=== PATIENT | male | born 1960 | race Caucasian/White ===

== ENCOUNTER → 2021-05-15 06:52 | Outpatient (CLI) | payer BC, SELFPAY ==
[2021-05-15 08:56] LABS: Hematocrit 45.6 % (41-53); Hemoglobin 15.2 g/dL (13.5-17.5); Mean Corpuscular HGB Conc 33.4 % (30-36); Mean Corpuscular Hemoglobin 32.7 PG (26-34); Mean Corpuscular Volume 97.9 fL (80-100); Platelet Count 179 X10^3/uL (150-400); Red Blood Cell Count 4.66 X10^6/uL (4.5-5.9); Red Cell Distribution Width 12.5 % (11.6-14.8)
[2021-05-15 09:19] LABS: Alanine Aminotransferase 20 IU/L (<50); Albumin 4.5 g/dL (3.5-5.0); Albumin Globulin Ratio 1.9 (1.0-2.8); Alkaline Phosphatase 43 U/L (38-126); Aspartate Aminotransferase 42 IU/L (17-59); BUN Creatinine Ratio 12.3 (6-22); Bilirubin Total 1.1 mg/dL (0.2-1.3); Blood Urea Nitrogen 13 mg/dL (9-20); Calcium 9.3 mg/dL (8.4-10.2); Carbon Dioxide 34 mmol/L (22-32); Chloride 99 mmol/L (98-107); Cholesterol 169 mg/dL (140-199); Estimated Glomerular Filt Rate > 60.0 mL/min (>60); Globulin 2.4 g/dL (1.7-4.1); Glucose 89 mg/dL (80-110); HDL Cholesterol 77 mg/dL (40-60); HEMOLYSIS < 15 (0-50); LDL Cholesterol Calculated 86 mg/dL (<100); Potassium 3.9 mmol/L (3.4-5.1); Sodium 136 mmol/L (137-145); Total Protein 6.9 g/dL (6.3-8.2); Triglycerides 32 mg/dL (35-150)
[2021-05-15 09:46] LABS: TSH w/ Reflex to FT4 4.16 uIU/mL (0.47-4.68)
== END ==
PROVIDERS: PCP Registered Nurse Diabetes Educator; Referring Provider Registered Nurse Diabetes Educator; Visit Provider Registered Nurse Diabetes Educator
DX: E03.9 Hypothyroidism, unspecified (principal); E78.5 Hyperlipidemia, unspecified
CPT/HCPCS: 36415; 80053; 80061; 84443; 85027

== ENCOUNTER → 2021-06-01 08:58 | Outpatient (CLI) | payer BC, SELFPAY ==
--- NOTE | 2021-06-01 08:59 | DI.RAD.S_ITS ---
PROCEDURE: XR HUMERUS LT 2V INDICATIONS: eval L shoulder and upper arm pain TECHNIQUE: 2 views of the humerus were acquired. COMPARISON: [facility], CR, XR SHOULDER LT MIN 2V, 06/01/2021, 8:51. FINDINGS: Bones: No fractures or dislocations. No suspicious bony lesions. Soft tissues: No suspicious soft tissue calcifications. IMPRESSION: No acute osseous abnormalities. Dictated by: Hudson Santoyo M.D. on 06/01/2021 at 10:10 Approved by: Hudson Santoyo M.D. on 06/01/2021 at 10:10
--- NOTE | 2021-06-01 08:59 | DI.RAD.S_ITS ---
PROCEDURE: XR SHOULDER LT MIN 2V INDICATIONS: eval L shoulder and upper arm pain TECHNIQUE: 3 views of the shoulder were acquired. COMPARISON: [facility], CR, XR HUMERUS LT 2V, 06/01/2021, 8:51. FINDINGS: Bones: No fractures or dislocations. There is a 0.8 cm sclerotic focus in humeral head. Mild acromioclavicular joint degeneration. Visualized ribs appear intact. Soft tissues: No suspicious soft tissue calcifications. IMPRESSION: 1. Mild degenerative joint disease. 2. A sclerotic lesion in humeral head, most likely a bone island. If there is personal history of cancer, a whole body bone scan would be helpful. Dictated by: Hudson Santoyo M.D. on 06/01/2021 at 10:11 Approved by: Hudson Santoyo M.D. on 06/01/2021 at 10:14
== END ==
PROVIDERS: PCP Registered Nurse Diabetes Educator; Referring Provider Registered Nurse Diabetes Educator; Visit Provider Registered Nurse Diabetes Educator
DX: M19.012 Primary osteoarthritis, left shoulder (principal); M25.512 Pain in left shoulder; M79.602 Pain in left arm; M89.9 Disorder of bone, unspecified
CPT/HCPCS: 73030; 73060

== ENCOUNTER → 2021-07-08 11:36 | Outpatient (CLI) | payer BC, SELFPAY ==
--- NOTE | 2021-07-08 11:37 | DI.MRI.S_ITS ---
PROCEDURE: MR SHOULDER LT WO/W CON INDICATIONS: further eval sclerotic lesion L humeral head, shoulder pain TECHNIQUE: Noncontrast oblique coronal T1 spin echo and T2 fast spin echo with fat saturation, oblique sagittal T1 spin echo and T2 fast spin echo with fat saturation, axial T1 spin echo and T2 fast spin echo with fat saturation through the shoulder. Post-contrast oblique coronal, oblique sagittal, and axial T1 spin echo with fat saturation through the shoulder. COMPARISON: [facility], CR, XR HUMERUS LT 2V, 06/01/2021, 8:51. [facility], CR, XR SHOULDER LT MIN 2V, 06/01/2021, 8:51. FINDINGS: Image quality: Excellent. Rotator cuff: There is high-grade partial-thickness tear of the supraspinatus tendon and associated tendinitis. Mild tendinosis of the infraspinatus and subscapularis tendons without tendon tear. Sagittal images demonstrate no rotator cuff muscle atrophy. Bones and bursae: The sclerotic lesion in the humeral head demonstrates no abnormal enhancement, most likely benign such as a bone island. No suspicious bone marrow enhancement. No bone contusions or fractures. Mild acromioclavicular joint degeneration. The acromion demonstrates conventional anatomy, without an os acromiale. There is a small amount of subacromial-subdeltoid bursal fluid consistent with mild bursitis. Small glenohumeral joint effusion is present. Capsule and soft tissues: No suspicious soft tissue enhancement. Mild degenerative labral fraying. The long head of the biceps tendon demonstrates normal location and morphology. The rotator interval appears irregular with mild fibrosis. The coracohumeral ligament is mildly thickened. IMPRESSION: 1. The sclerotic bone lesion in the humeral head demonstrates no abnormal enhancement, most likely a bone island. 2. High-grade partial-thickness tear of the supraspinatus tendon. 3. Mild infraspinatus and subscapularis tendinosis without discrete tendon tear 4. Mild subacromial-subdeltoid bursitis. 5. Mild acromioclavicular joint degeneration. 6. Irregular rotator interval with mild fibrosis and mild thickening of coracohumeral ligament. The constellation of findings suggests adhesive capsulitis. Recommend clinical correlation. Dictated by: Hudson Santoyo M.D. on 07/10/2021 at 13:06 Approved by: Hudson Santoyo M.D. on 07/10/2021 at 13:23
== END ==
PROVIDERS: PCP Registered Nurse Diabetes Educator; Referring Provider Registered Nurse Diabetes Educator; Visit Provider Registered Nurse Diabetes Educator
DX: M75.112 Incomplete rotator cuff tear or rupture of left shoulder, not specified as traumatic (principal); M19.012 Primary osteoarthritis, left shoulder; M89.9 Disorder of bone, unspecified; M75.52 Bursitis of left shoulder; M25.512 Pain in left shoulder
CPT/HCPCS: 73223; A9579

== ENCOUNTER → 2021-07-28 10:09 | Outpatient (CLI) | payer BC, SELFPAY ==
[2021-07-28 11:23] LABS: Add Manual Diff / Slide Review NO; Basophils Absolute Auto 100 /uL (0-100); Basophils Percent Auto 1.9 % (0-2); Eosinophils Absolute Auto 100 /uL (0-450); Eosinophils Percent Auto 2.7 % (2-4); Hematocrit 42.7 % (41-53); Hemoglobin 14.7 g/dL (13.5-17.5); Lymphocytes Absolute Auto 1300 /uL (1100-4500); Lymphocytes Percent Auto 40.2 % (25-40); Mean Corpuscular HGB Conc 34.5 % (30-36); Mean Corpuscular Hemoglobin 33.1 PG (26-34); Mean Corpuscular Volume 96.2 fL (80-100); Monocytes Absolute Auto 400 /uL (0-900); Monocytes Percent Auto 12.8 % (3-14); Neutrophils Absolute Auto 1400 /uL (1500-7000); Neutrophils Percent Auto 42.4 % (50-75); Platelet Count 191 X10^3/uL (150-400); Red Blood Cell Count 4.44 X10^6/uL (4.5-5.9); Red Cell Distribution Width 12.8 % (11.6-14.8); White Blood Cell Count 3.3 X10^3/uL (4.5-11.0)
== END ==
PROVIDERS: PCP Registered Nurse Diabetes Educator; Referring Provider Registered Nurse Diabetes Educator; Visit Provider Registered Nurse Diabetes Educator
DX: D72.819 Decreased white blood cell count, unspecified (principal)
CPT/HCPCS: 36415; 85025

== ENCOUNTER → 2022-05-29 06:57 | Outpatient (CLI) | payer BC, SELFPAY ==
[2022-05-29 08:30] LABS: Hematocrit 44.4 % (41-53); Hemoglobin 15.3 g/dL (13.5-17.5); Mean Corpuscular HGB Conc 34.6 % (30-36); Mean Corpuscular Hemoglobin 33.6 PG (26-34); Mean Corpuscular Volume 97.2 fL (80-100); Platelet Count 181 X10^3/uL (150-400); Red Blood Cell Count 4.57 X10^6/uL (4.5-5.9); Red Cell Distribution Width 12.8 % (11.6-14.8); White Blood Cell Count 3.7 X10^3/uL (4.5-11.0)
[2022-05-29 08:55] LABS: Alanine Aminotransferase 24 IU/L (<50); Albumin 4.4 g/dL (3.5-5.0); Albumin Globulin Ratio 1.9 (1.0-2.8); Alkaline Phosphatase 66 U/L (38-126); Aspartate Aminotransferase 33 IU/L (17-59); BUN Creatinine Ratio 12.6 (6-22); Bilirubin Total 0.9 mg/dL (0.2-1.3); Blood Urea Nitrogen 13 mg/dL (9-20); Calcium 9.1 mg/dL (8.4-10.2); Carbon Dioxide 32 mmol/L (22-32); Chloride 97 mmol/L (98-107); Cholesterol 193 mg/dL (140-199); Estimated Glomerular Filt Rate > 60 mL/min (>60); Globulin 2.3 g/dL (1.7-4.1); Glucose 88 mg/dL (80-110); HDL Cholesterol 85 mg/dL (40-60); HEMOLYSIS < 15 (0-50); LDL Cholesterol Calculated 98 mg/dL (<100); Potassium 4.4 mmol/L (3.4-5.1); Sodium 134 mmol/L (137-145); Total Protein 6.7 g/dL (6.3-8.2); Triglycerides 48 mg/dL (35-150)
[2022-05-29 10:10] LABS: Free T4, Direct Thyroxine 1.06 ng/dL (0.78-2.19)
== END ==
PROVIDERS: PCP Registered Nurse Diabetes Educator; Referring Provider Registered Nurse Diabetes Educator; Visit Provider Registered Nurse Diabetes Educator
DX: E03.9 Hypothyroidism, unspecified (principal); E78.5 Hyperlipidemia, unspecified; Z00.00 Encounter for general adult medical examination without abnormal findings; Z51.81 Encounter for therapeutic drug level monitoring
CPT/HCPCS: 36415; 80053; 80061; 84439; 84443; 85027

== ENCOUNTER → 2022-06-05 08:59 | Outpatient (CLI) | payer BC, SELFPAY ==
--- NOTE | 2022-06-05 09:00 | DI.RAD.S_ITS ---
PROCEDURE: XR KNEE LT 3V INDICATIONS: eval L knee pain TECHNIQUE: 3 views of the knee were acquired. COMPARISON: None. FINDINGS: Bones: No fractures or dislocations. Medial femoral tibial compartment osteoarthritic changes are seen with joint space narrowing and subchondral sclerosis. No patellar subluxation. No suspicious bony lesions. Soft tissues: Moderate suprapatellar joint effusion is seen. No suspicious soft tissue calcifications. IMPRESSION: [id number] medial femoral tibial compartment osteoarthritis. No left knee fracture or dislocation. Moderate suprapatellar joint effusion. Dictated by: Rome May M.D. on 06/05/2022 at 10:30 Approved by: Rome May M.D. on 06/05/2022 at 10:44
== END ==
PROVIDERS: PCP Registered Nurse Diabetes Educator; Referring Provider Registered Nurse Diabetes Educator; Visit Provider Registered Nurse Diabetes Educator
DX: M17.12 Unilateral primary osteoarthritis, left knee (principal); M25.562 Pain in left knee; M25.462 Effusion, left knee
CPT/HCPCS: 73562

== ENCOUNTER → 2022-06-05 09:54 | Outpatient (CLI) | payer BC, SELFPAY ==
--- NOTE | 2022-06-05 09:55 | DI.US.S_ITS ---
PROCEDURE: US THYROID INDICATIONS: HISTORY OF HYPOTHRYOIDISM TECHNIQUE: Real-time scanning was performed of the thyroid gland, with image documentation. COMPARISON: None. FINDINGS: Right: Thyroid lobe measures 3.8 X 1.1 X 1.3 cm, and is homogeneous in echotexture. Left: Thyroid lobe measures 3.4 X 1.4 X 1.2 cm, and is homogenous in echotexture. Isthmus: 2 mm thick. Nodule number: 1 Location: RIGHT INFERIOR POLE Size: 0.5 cm. Composition: SOLID Echogenicity: HYPOECHOIC Shape: wider than tall. Margins: Smooth Echogenic foci: No Total points: 4 ACR TI-RADS category: Moderate suspicion IMPRESSION: Moderate suspicion thyroid nodule in the right inferior pole. This does not meet size criteria for biopsy. Follow-up guidelines below. ACR TI-RADS definitions and recommendations: TI-RADS 1 (benign): 0 points. FNA not needed. TI-RADS 2 (not suspicious): 2 points. FNA not needed. TI-RADS 3 (mildly suspicious): 3 points. * FNA if 2.5 cm or larger, follow up if 1.5 cm or larger (at 1, 3, and 5 years). TI-RADS 4 (moderately suspicious): 4-6 points. * FNA if 1.5 cm or larger, follow up if 1 cm or larger (at 1, 2, 3, and 5 years). TI-RADS 5 (highly suspicious): 7 points or more. * FNA if 1 cm or larger, follow up if 0.5 cm or larger (every year for 5 years). Dictated by: Juan R Sanchez M.D. on 06/05/2022 at 11:08 Approved by: Juan R Sanchez M.D. on 06/05/2022 at 11:11
== END ==
PROVIDERS: PCP Registered Nurse Diabetes Educator; Referring Provider Registered Nurse Diabetes Educator; Visit Provider Registered Nurse Diabetes Educator
DX: E04.1 Nontoxic single thyroid nodule (principal); E03.9 Hypothyroidism, unspecified; M25.562 Pain in left knee; M17.12 Unilateral primary osteoarthritis, left knee; M25.462 Effusion, left knee
CPT/HCPCS: 73562; 76536

== ENCOUNTER → 2022-07-23 07:13 | Outpatient (CLI) | payer BC, SELFPAY ==
[2022-07-23 09:50] LABS: TSH w/ Reflex to FT4 3.35 uIU/mL (0.47-4.68)
== END ==
PROVIDERS: PCP Registered Nurse Diabetes Educator; Referring Provider Registered Nurse Diabetes Educator; Visit Provider Registered Nurse Diabetes Educator
DX: E03.9 Hypothyroidism, unspecified (principal)
CPT/HCPCS: 36415; 84443

== ENCOUNTER → 2023-07-03 06:42 | Outpatient (CLI) | payer BC, SELFPAY ==
[2023-07-03 08:00] LABS: Hematocrit 45.1 % (41-53); Hemoglobin 15.3 g/dL (13.5-17.5); Mean Corpuscular Hemoglobin 33.4 PG (26-34); Mean Corpuscular Volume 98.3 fL (80-100); Platelet Count 178 X10^3/uL (150-400); Red Blood Cell Count 4.58 X10^6/uL (4.5-5.9); Red Cell Distribution Width 13.5 % (11.6-14.8); White Blood Cell Count 3.1 X10^3/uL (4.5-11.0)
[2023-07-03 08:42] LABS: Alanine Aminotransferase 29 IU/L (<50); Albumin 4.6 g/dL (3.5-5.0); Albumin Globulin Ratio 2.3 (1.0-2.8); Alkaline Phosphatase 59 U/L (38-126); Aspartate Aminotransferase 44 IU/L (17-59); Blood Urea Nitrogen 11 mg/dL (9-20); Calcium 9.6 mg/dL (8.4-10.2); Carbon Dioxide 31 mmol/L (22-32); Chloride 102 mmol/L (98-107); Cholesterol 180 mg/dL (140-199); Estimated Glomerular Filt Rate > 60 mL/min (>60); Glucose 90 mg/dL (80-110); HDL Cholesterol 97 mg/dL (40-60); HEMOLYSIS < 15 (0-50); LDL Cholesterol Calculated 76 mg/dL (<100); Potassium 4.3 mmol/L (3.4-5.1); Sodium 135 mmol/L (137-145); Total Protein 6.6 g/dL (6.3-8.2); Triglycerides 37 mg/dL (35-150)
[2023-07-03 09:03] LABS: Prostate Specific Antigen 1.16 ng/mL (0.10-4.00)
== END ==
LOC: LAB 06:43
PROVIDERS: PCP Registered Nurse Diabetes Educator; Referring Provider Registered Nurse Diabetes Educator; Visit Provider Registered Nurse Diabetes Educator
DX: Z00.00 Encounter for general adult medical examination without abnormal findings (principal)
CPT/HCPCS: 36415; 80053; 80061; 84153; 84443; 85027

== ENCOUNTER 2023-10-26 07:31 | Emergency (ER) | payer BC, SELFPAY ==
[2023-10-26 07:43] VITALS: BP 158/89; PULSE 63; RESP 18; TEMP 36.6; O2SAT 99; BMI 23.1
--- NOTE | 2023-10-26 07:47 | DI.RAD.S_ITS ---
PROCEDURE: XR FOREARM LT 2V INDICATIONS: r/o fx TECHNIQUE: 2 views of the forearm were acquired. COMPARISON: [facility], CR, XR WRIST LT MIN 3V, 10/26/2023, 7:56. FINDINGS: Bones: No fractures or dislocations. No suspicious bony lesions. Soft tissues: No suspicious soft tissue calcifications or masses. IMPRESSION: No acute bony abnormality. Dictated by: Jerel Helton M.D. on 10/26/2023 at 9:16 Approved by: Jerel Helton M.D. on 10/26/2023 at 9:17
--- NOTE | 2023-10-26 07:48 | DI.RAD.S_ITS ---
PROCEDURE: XR WRIST LT MIN 3V INDICATIONS: r/o fx TECHNIQUE: 4 views of the wrist were acquired. COMPARISON: None. FINDINGS: Bones: No fractures or dislocations. No suspicious bony lesions. Soft tissues: No suspicious soft tissue calcifications. IMPRESSION: No acute bony abnormality. Dictated by: Jerel Helton M.D. on 10/26/2023 at 8:33 Approved by: Jerel Helton M.D. on 10/26/2023 at 8:34
--- NOTE | 2023-10-26 07:53 | ED_ITS ---
HPI - Extremity Injury (Upper) General Chief Complaint: Extremity Injury, Upper Stated Complaint: fell and hurt left arm Time Seen by Provider: 10/26/23 07:48 Source: patient Mode of arrival: Ambulatory History of Present Illness HPI narrative: 63-year-old right-handed male slipped last night at home in the tub, tried to brace himself with his left hand, holding onto the tub edge, felt pain in his left wrist that has been persisting, also some proximal forearm pain. No pain to his left elbow, upper arm, shoulder. He did not strike his head. No headache, no neck pain. Denies pain to upper mid and low back. No lower extremity injuries. No right upper extremity injuries. No facial injuries. He has tried local ice application, had some swelling initially that seems to be improved, but persisting pain predominantly at the left wrist, also some dorsal forearm left. Related Data Home Medications Medication Instructions Recorded Confirmed metronidazole 0.75 % topical cream 1 applic topical BID 07/09/23 07/09/23 Previous Rx's Medication Instructions Recorded varicella-zoster glycoE [id number] 0.5 ml IM ONCE #1 ea 06/01/21 adj(PF) 50 mcg/0.5 mL IM susp, kit (Shingrix (PF)) levothyroxine 100 mcg tablet 100 mcg PO DAILY #90 tabs 07/09/23 simvastatin 40 mg tablet 40 mg PO DAILY #90 tabs 07/09/23 Allergies Allergy/AdvReac Type Severity Reaction Status Date / Time No Known Drug Allergies Allergy Verified 07/09/23 08:07 Review of Systems Review of Systems Narrative: see HPI Patient History Medical History (Updated 10/26/23 @ 07:59 by Patrice Felder MD) Thyroid Nodule History of colon polyps Osteoarthritis of left knee Hypothyroidism Dyslipidemia Social History Smoking Status: Never smoker Smoking Status: Never smoker alcohol intake frequency: 3 or more drinks per day Alcohol type: beer Substance Use Type: does not use Exam Narrative Exam Narrative: GENERAL: Well-developed patient, in mild distress. HEAD: Atraumatic. Normocephalic. EYES: Pupils equal round and reactive. Extraocular motions intact. No scleral icterus. No injection or drainage. ENT: Nose without bleeding, purulent drainage. Throat without erythema, tonsillar hypertrophy or exudate. Airway patent. NECK: Trachea midline. Non tender CARDIOVASCULAR: Regular rate and rhythm without murmurs, gallops, or rubs. RESPIRATORY: Clear to auscultation. Breath sounds equal bilaterally. No wheezes, rales, or rhonchi. GASTROINTESTINAL: Abdomen soft, non-tender, nondistended. EXTREMITIES: Tenderness to left distal rest without gross deformity, also some tenderness to the muscle bellies proximal left forearm. No tenderness at left elbow, upper arm, shoulder, trapezius. No tenderness left hand snuffbox area. No tenderness or deformity to dorsal or volar hand, nor to left fingers. No skin abrasions or lacerations. BACK: Nontender without deformity or crepitance. No flank tenderness. NEURO: AOx3. SKIN: No rash or erythema of visible areas Initial Vital Signs Initial Vital Signs: Vital Signs Temperature 97.9 F 10/26/23 07:43 Pulse Rate 63 10/26/23 07:43 Respiratory Rate 18 10/26/23 07:43 Blood Pressure 158/89 H 10/26/23 07:43 Pulse Oximetry 99 10/26/23 07:43 Oxygen Delivery Method Room Air 10/26/23 07:43 Course Orders Ordered: ED Orders 10/26/23 07:47 XR forearm LT 2V Stat 10/26/23 07:48 XR wrist LT min 3V Stat Vital Signs Vital signs: Vital Signs - 8 hr 10/26/23 07:43 Temperature 97.9 F Pulse Rate 63 Respiratory Rate 18 Blood Pressure 158/89 H Pulse Oximetry 99 Oxygen Delivery Method Room Air MDM - Extremity Injury (Upper) Imaging Data Extremity x-ray #2: Radiologist's Impression: Close Wrist X-Ray (Signed) Jerel Helton - 10/26/23 Forearm X-Ray (Signed) Jerel Helton - 10/26/23 Thyroid Ultrasound (Signed) Juan R Sanchez - 06/05/22 Knee X-Ray (Signed) Rome May - 06/05/22 Shoulder MRI (Signed) Sloan Santoyo - 07/08/21 Shoulder X-Ray (Signed) Sloan Santoyo - 06/01/21 Humerus X-Ray (Signed) Sloan Santoyo - 06/01/[address] [address] XRay Report Signed Patient: Antonio Queen MR#: [id number] : 1960 Acct:[id number] Age/Sex: 63 / M Date of Service: 10/26/23 Loc: ED Accession Number: [id number] Procedure: XR forearm LT 2V Ordering Provider: Patrice Felder MD PROCEDURE: XR FOREARM LT 2V INDICATIONS: r/o fx TECHNIQUE: 2 views of the forearm were acquired. COMPARISON: [facility], CR, XR WRIST LT MIN 3V, 10/26/2023, 7:56. FINDINGS: Bones: No fractures or dislocations. No suspicious bony lesions. Soft tissues: No suspicious soft tissue calcifications or masses. IMPRESSION: No acute bony abnormality. Dictated by: Jerel Helton M.D. on 10/26/2023 at 9:16 Approved by: Jerel Helton M.D. on 10/26/2023 at 9:17 MDM Narrative Medical decision making narrative: 63-year-old male with slip and fall bathtub, broke his fall with grabbing onto bathtub edge with left hand, left wrist pain and swelling since last night, ice packs helping. Also left forearm discomfort. X-rays left wrist and forearm ordered from triage. X-ray reports negative for fracture, see radiology reports. Placed left Velcro wrist splint. Recheck PCP advised early next week, also gave contact information for local orthopedic surgery if needed. We discussed possible injury occult fracture that may not be evident on 1st x-ray, also ligamentous/tendon soft tissue injuries did not show up on x-rays. We discussed rest, ice, splinting, use of anti-inflammatories if tolerated. Recheck advise early next week. Return precautions discussed, home with family. Discharge Plan Departure Patient Disposition: Home Clinical Impression: Strain of left wrist Activity Restrictions/Additional Instructions: Slip and fall in a tub last night, using left hand to brace herself, with pain to the left distal wrist, also some slight pain to the dorsal aspect of the muscle belly area on the left forearm. X-ray left forearm without obvious fracture pattern. Wrist splint, ice, elevation, anti-inflammatory medications advised. Follow up with your regular doctor in the next couple of days to reassess symptoms. Consider orthopedic surgery follow up if symptoms are persisting. Local contact Orthopedic surgery provided if needed. Return earlier to this/nearest emergency department for any change worsening symptoms or any concerns prior Prescriptions: No Action Shingrix (PF) 50 mcg/0.5 mL suspension for reconstitution 0.5 ml IM ONCE Qty: 1 1RF Rx Instructions: 0.5 mL administered as a 2-dose series at 0 and 2 to 6 months. metronidazole 0.75 % cream 1 applic topical BID levothyroxine 100 mcg tablet 100 mcg PO DAILY Qty: 90 3RF simvastatin 40 mg tablet 40 mg PO DAILY Qty: 90 3RF Referrals: Donny Tripathi ARNP [Primary Care Provider] - Poonam Vila MD [Physician] - Stand Alone Forms: Patient Portal/API
== END 2023-10-26 09:06 | disposition home or self-care (01) ==
PROVIDERS: Emergency Provider Emergency Medicine; PCP Registered Nurse Diabetes Educator
DX: S66.912A Strain of unspecified muscle, fascia and tendon at wrist and hand level, left hand, initial encounter (principal); W18.2XXA Fall in (into) shower or empty bathtub, initial encounter
CPT/HCPCS: 73090; 73110; 99281; 99283

== ENCOUNTER → 2024-07-06 07:07 | Outpatient (CLI) | payer MEDICARE, BC, SELFPAY ==
[2024-07-06 08:02] LABS: Hemoglobin 15.6 g/dL (13.5-17.5); Mean Corpuscular HGB Conc 33.9 % (30-36); Mean Corpuscular Hemoglobin 33.5 PG (26-34); Mean Corpuscular Volume 98.8 fL (80-100); Platelet Count 174 X10^3/uL (150-400); Red Blood Cell Count 4.66 X10^6/uL (4.5-5.9); Red Cell Distribution Width 13.3 % (11.6-14.8); White Blood Cell Count 3.4 X10^3/uL (4.5-11.0)
[2024-07-06 08:26] LABS: Alanine Aminotransferase 29 IU/L (<50); Albumin 4.7 g/dL (3.5-5.0); Albumin Globulin Ratio 2.8 (1.0-2.8); Alkaline Phosphatase 56 U/L (38-126); Aspartate Aminotransferase 46 IU/L (17-59); Bilirubin Total 1.3 mg/dL (0.2-1.3); Blood Urea Nitrogen 17 mg/dL (9-20); Calcium 9.5 mg/dL (8.4-10.2); Carbon Dioxide 29 mmol/L (22-32); Chloride 99 mmol/L (98-107); Cholesterol 207 mg/dL (140-199); Estimated Glomerular Filt Rate > 60 mL/min (>60); Globulin 1.7 g/dL (1.7-4.1); Glucose 99 mg/dL (70-99); HDL Cholesterol 95 mg/dL (40-60); HEMOLYSIS < 15 (0-50); LDL Cholesterol Calculated 103 mg/dL (<100); Potassium 4.6 mmol/L (3.4-5.1); Sodium 134 mmol/L (137-145); Total Protein 6.4 g/dL (6.3-8.2); Triglycerides 44 mg/dL (35-150)
[2024-07-06 08:53] LABS: TSH w/ Reflex to FT4 3.49 uIU/mL (0.47-4.68)
[2024-07-06 08:55] LABS: Prostate Specific Antigen 1.21 ng/mL (0.10-4.00)
== END ==
PROVIDERS: PCP Registered Nurse Diabetes Educator; Referring Provider Registered Nurse Diabetes Educator; Visit Provider Registered Nurse Diabetes Educator
DX: Z00.00 Encounter for general adult medical examination without abnormal findings (principal); E03.9 Hypothyroidism, unspecified; E78.5 Hyperlipidemia, unspecified; D72.819 Decreased white blood cell count, unspecified; R03.0 Elevated blood-pressure reading, without diagnosis of hypertension; Z12.5 Encounter for screening for malignant neoplasm of prostate
CPT/HCPCS: 36415; 80053; 80061; 84153; 84443; 85027

== ENCOUNTER → 2024-07-28 06:37 | Outpatient (CLI) | payer MEDICARE, BC, SELFPAY ==
--- NOTE | 2024-07-28 06:38 | DI.ECHO.S_ITS ---
[facility] : : [address] : : [place] : : [id number] : : Phone: [phone] Echocardiogram Report + + :Name: RADHA PRESLEY Study Date: 07/28/2024 Height: 73 in : :Hospital ReadingLocation: Weight: 178 lb : : Gender: Male BSA: 2.0 m2 : :: 1960 Age: 64 yrs BP: 153/93 mmHg: :Reason For Study: EVALUATE LVH, POSSIBLE LEFT ATRIAL : :ENLARGEMENT : :Ordering Physician: DONNA : :MICHOACANO Performed By: Lety Camarena : :Referring: MICHOACANO LYNCH : + + Interpretation Summary The ejection fraction is estimated to be 55-60%. Diastolic parameters suggest probable normal left ventricular diastolic function and normal filling pressures. The left atrium is mildly dilated. The right ventricle is normal in size and function. There is mild mitral regurgitation. There is mild tricuspid regurgitation. The right ventricular systolic pressure is estimated to be at least 27 mmHg based on an estimated right atrial pressure of 3 mm Hg. The ascending aorta is mild-moderately enlarged. Procedure: A two-dimensional transthoracic echocardiogram with color flow and Doppler was performed. The study quality was technically adequate. There is no prior echocardiogram noted for this patient. The patient was in sinus rhythm with heart rates between 55-82 bpm during the exam. Left Ventricle: The left ventricle is normal in size. There is normal left ventricular wall thickness. The ejection fraction is estimated to be 55-60%. Diastolic parameters suggest probable normal left ventricular diastolic function and normal filling pressures. Right Ventricle: The right ventricle is normal in size and function. Atria: The left atrium is mildly dilated. Right atrial size is normal. There is no Doppler evidence for an interatrial shunt. Mitral Valve: The mitral valve leaflets appear borderline thickened, but open well. There is mild mitral regurgitation. Aortic Valve: The aortic valve is trileaflet. There is no aortic valve stenosis. No aortic regurgitation is present. Tricuspid Valve: The tricuspid valve leaflets are thin and pliable. There is mild tricuspid regurgitation. The right ventricular systolic pressure is estimated to be at least 27 mmHg based on an estimated right atrial pressure of 3 mm Hg. Pulmonic Valve: The pulmonic valve leaflets are thin and pliable; valve motion is normal. There is no pulmonic valvular regurgitation. Great Vessels: The aortic root is borderline dilated. The ascending aorta is mild-moderately enlarged. The IVC is of normal diameter and collapses greater than 50% with a sniff. This suggests a low right atrial pressure of 3 mm Hg. Pericardium/ Pleura There is no pericardial effusion. There is no pleural effusion. MMode/2D Measurements & Calculations LVIDd: 5.2 cm LVOT diam: 2.1 cm LVIDs: 3.6 cm Ao root diam: 3.9 cm FS: 30.5 % asc Aorta Diam: 4.2 cm EPSS: 0.96 cm Ao Arch Diam (Prox Trans): 2.7 cm IVSd: 0.98 cm LVPWd: 1.1 cm LV jack. diameter/BSA (cm/m^2): 2.6 LV sys. diameter/BSA (cm/m^2): 1.8 LA A2 area: 25.5 cm2 RA long axis: 4.8 cm LA A4 area: 17.2 cm2 RA area: 12.0 cm2 LA length (vol): 5.1 cm RA vol: 25.7 ml LA vol: 73.4 ml RA : 12.5 ml/m2 LA vol index: 35.9 ml/m2 IVC diam: 1.5 cm RVD1 (basal): 3.3 cm RVD2 (mid): 2.9 cm TAPSE: 2.3 cm Doppler Measurements & Calculations Ao V2 max: 124.0 cm/sec LVOT Max Octavio: 87.3 cm/sec Ao V2 mean: 89.5 cm/sec LV V1 max P.0 mmHg Ao max P.1 mmHg LV V1 VTI: 19.2 cm Ao mean P.5 mmHg JOSETTE(I,D): 2.5 cm2 Ao V2 VTI: 25.7 cm JOSETTE(V,D): 2.3 cm2 sev ratio: 0.75 JOSETTE indexed to BSA (cm^2/m^2): 1.2 MV E max octavio: 67.7 cm/sec TR max octavio: 243.1 cm/sec MV A max octavio: 62.4 cm/sec TR max P.6 mmHg MV E/A: 1.1 PA V2 max: 97.7 cm/sec Med Peak E' Octavio: 9.9 cm/sec PA V2 mean: 70.0 cm/sec E/E' med: 6.8 PA mean P.2 mmHg Lat Peak E' Octavio: 13.2 cm/sec PA pr(Accel): 18.2 mmHg E/E' lat: 5.1 E/e' average: 6.0 MV dec time: 0.16 sec SV(LVOT): 63.3 ml Reading Physician:03:18 PM
== END ==
PROVIDERS: PCP Registered Nurse Diabetes Educator; Referring Provider Registered Nurse Diabetes Educator; Visit Provider Registered Nurse Diabetes Educator
DX: I51.7 Cardiomegaly (principal); R94.31 Abnormal electrocardiogram [ECG] [EKG]; I34.0 Nonrheumatic mitral (valve) insufficiency; I07.1 Rheumatic tricuspid insufficiency
CPT/HCPCS: 93306

== ENCOUNTER 2024-09-22 08:10 | Day surgery (SDC) | payer MEDICARE, BC, SELFPAY ==
[2024-09-22 08:53] VITALS: BP 155/84; PULSE 60; RESP 15; TEMP 36.3; O2SAT 99
[2024-09-22] MEDS: LACTATED RINGERS 1,000 ML 42 ML IV (09:10)
--- NOTE | 2024-09-22 09:38 | PM.HP.IH.1 ---
History of Present Illness History of Present Illness Date Patient Seen: 09/22/24 Time Patient Seen: 09:38 Chief complaint: Screening Colonoscopy Narrative: Presents for screening colonoscopy. H/O benign polyps removed 03/02/20 in [place]. [facility] Medical History Thyroid Nodule History of colon polyps Osteoarthritis of left knee Hypothyroidism Dyslipidemia Social History Smoking Status: Never smoker Meds Home Medications and Allergies Home Medications ?Medication ?Instructions ?Recorded ?Confirmed ?Type metronidazole 0.75 % topical cream 1 applic topical BID 07/09/23 09/22/24 History levothyroxine 100 mcg tablet 100 mcg PO DAILY #90 tabs 07/13/24 09/22/24 Rx simvastatin 40 mg tablet 40 mg PO DAILY #90 tabs 07/13/24 09/22/24 Rx peg 3350-electrolytes 236 240 ml PO Q10M #4,000 mL 08/26/24 09/22/24 Rx gram-22.74 gram-6.74 gram-5.86 gram solution (Golytely) Allergies Allergy/AdvReac Type Severity Reaction Status Date / Time No Known Drug Allergies Allergy Verified 09/22/24 08:50 Exam Vital Signs (past 8 hours): - 09/22/24 08:53 Temperature 97.4 F L Pulse Rate 60 Respiratory Rate 15 Blood Pressure 155/84 H Pulse Oximetry 99 Oxygen Delivery Method Room Air Oxygen Delivery Method Room Air Const General: healthy appearing and comfortable Orientation: alert and oriented x3 Eyes Visual Rolon: normal visual rolon by confrontation Conjunctivae: conjunctivae normal Sclera: sclerae normal EOM: EOM intact bilaterally Resp Effort & Inspection: normal respiratory effort and able to speak in complete sentences Auscultation: clear to auscultation bilaterally Cardio Rate: regular rate GI Palpation: soft (non-tender) Extrem Other: Without pitting edema Assessment & Plan Assessment and plan (1) History of colon polyps: Status: Acute Assessment & Plan narrative: Plan screening colonoscopy, possible polypectomy. The risks, benefits and options regarding the procedure were explained to the patient in detail. Risk discussion included but not limited to: bleeding, perforation, missed lesion, unable to reach cecum. The patient was encouraged to ask questions and they were answered to their satisfaction. The patient understands and is agreeable to proceed. Time-Based Coding :: [TOTAL MINUTES] spent with patient and on the chart (including review of chart, obtaining history, exam, reviewing outside data, placing orders, documenting exam and treatment plan, and counseling patient) on [DATE]. PROFEE Butcher Scullion Document charge(s): Yes Charge Codes Initial inpatient/observation care: [id number]
[2024-09-22 10:38] VITALS: BP 138/76; PULSE 63; RESP 18; TEMP 36.5; O2SAT 98
--- NOTE | 2024-09-22 10:40 | PM.OP.COLON ---
Operative Date/Time/Diagnoses Date of procedure: 09/22/24 Time of procedure: 10:40 Pre-op diagnosis: Screening colonoscopy Post-op diagnosis: same Procedure & Clinicians Study performed: Screening colonoscopy Same procedure(s) as scheduled: Yes Indications: 64yo M, h/o 3mm polyp in 2019. Surgeon: Jose Juan Garcia Anesthesia Type: MAC +/- Procedure Notes SCOAP/Timeout: Performed Procedure in detail: Patient placed in left lateral recumbent position. Time out was performed. Procedural sedation was administered by anesthesia. Examination began with a thorough inspection of the perianal area. There was no evidence of fissures, fistulae, external hemorrhoids or cutaneous malignancy. The colonoscope was then placed into the rectum and the lumen was insufflated with carbon dioxide. The scope was carefully advanced forward. Ultimately the cecum was intubated and confirmed by identification of the ileocecal valve and the confluence of the taenia. The scope was then slowly withdrawn examining the colon thoroughly in all directions. In the rectum, retroflexion of the scope was performed for inspection of the distal rectum and anal canal. ?The colonoscopy was notable for the following: ?1. Quality of the preparation-good, [place] 2-3 ?2. Normal exam. No polyps. No diverticulosis 3. Plan next screening exam in 10 years Scope withdrawal time: 7 minutes Specimen(s): none sent Complications: none Impression: Normal exam Next exam 10 years Resume diet Post-procedure Recommendations: Colonoscopy in 10 years Plan for aftercare: PACU Home Follow up: as needed Disposition: PACU
[2024-09-22 10:50] VITALS: BP 136/77; PULSE 65; RESP 15; TEMP 36.5; O2SAT 99
[2024-09-22 11:01] VITALS: BP 128/70; PULSE 69; RESP 15; TEMP 36.4; O2SAT 99
== END 2024-09-22 11:07 | disposition home or self-care (01) ==
PROVIDERS: PCP Registered Nurse Diabetes Educator; Referring Provider Surgery; Visit Provider Surgery
PROC: 0DJD8ZZ Inspection of Lower Intestinal Tract, Via Natural or Artificial Opening Endoscopic (ICD-10-PCS; CPT 45378; principal; 2024-09-22 09:30)
DX: Z12.11 Encounter for screening for malignant neoplasm of colon (principal); Z86.0100 Personal history of colon polyps, unspecified
CPT/HCPCS: G0105; J2250; J2704

== ENCOUNTER → 2025-01-19 07:59 | Outpatient (CLI) | payer MEDICARE, BC, SELFPAY ==
[2025-01-19 08:55] LABS: Add Manual Diff / Slide Review NO; Hematocrit 46.6 % (41-53); Hemoglobin 15.8 g/dL (13.5-17.5); Lymphocytes Absolute Auto 1200 /uL (1100-4500); Mean Corpuscular HGB Conc 34.0 % (30-36); Mean Corpuscular Hemoglobin 33.5 PG (26-34); Mean Corpuscular Volume 98.6 fL (80-100); Platelet Count 171 X10^3/uL (150-400)
[2025-01-19 09:34] LABS: Alanine Aminotransferase 36 IU/L (<50); Albumin 5.0 g/dL (3.5-5.0); Albumin Globulin Ratio 2.3 (1.0-2.8); Alkaline Phosphatase 62 U/L (38-126); Blood Urea Nitrogen 14 mg/dL (9-20); Calcium 9.9 mg/dL (8.4-10.2); Carbon Dioxide 29 mmol/L (22-32); Chloride 98 mmol/L (98-107); Cholesterol 229 mg/dL (140-199); Estimated Glomerular Filt Rate > 60 mL/min (>60); Globulin 2.2 g/dL (1.7-4.1); Glucose 95 mg/dL (70-99); HDL Cholesterol 109 mg/dL (40-60); HEMOLYSIS < 15 (0-50); Potassium 4.5 mmol/L (3.4-5.1); Sodium 137 mmol/L (137-145); Total Protein 7.2 g/dL (6.3-8.2); Triglycerides 64 mg/dL (35-150)
[2025-01-19 09:58] LABS: TSH w/ Reflex to FT4 4.24 uIU/mL (0.47-4.68)
== END ==
PROVIDERS: PCP Registered Nurse Diabetes Educator; Referring Provider Internal Medicine; Visit Provider Internal Medicine
DX: I25.10 Atherosclerotic heart disease of native coronary artery without angina pectoris (principal); E03.9 Hypothyroidism, unspecified; E78.5 Hyperlipidemia, unspecified
CPT/HCPCS: 36415; 80053; 80061; 84443; 85025